=== PATIENT | male | born 2000 | race Caucasian/White ===

== ENCOUNTER 2025-10-20 01:16 | Emergency (ER) | payer OTHER ==
[~2025-10-20] VITALS: Ht 175.3 cm; Wt 90.8 kg
[2025-10-20 01:21] VITALS: TEMP 97.1
[2025-10-20 06:00] VITALS: BP 116/73; O2SAT 97
== END 2025-10-20 06:15 | disposition home or self-care (01) ==
LOC: EDBD 01:16 → M ED 01:16
DX: S05.12XA Contusion of eyeball and orbital tissues, left eye, initial encounter (principal); S06.0X0A Concussion without loss of consciousness, initial encounter; Y92.9 Unspecified place or not applicable; Y93.9 Activity, unspecified; Y99.9 Unspecified external cause status; Y04.2XXA Assault by strike against or bumped into by another person, initial encounter; F10.10 Alcohol abuse, uncomplicated